=== PATIENT | female | born 1980 | race Caucasian/White ===

== ENCOUNTER 2019-07-17 11:00 | Emergency (ER) | payer OTHER, SELFPAY ==
--- NOTE | 2019-07-17 11:09 | ED.GENADULT ---
HPI - General Adult General Chief complaint: Urogenital-Female Stated complaint: Poss UTI Time Seen by Provider: 07/17/19 11:24 Source: patient and RN notes reviewed Mode of arrival: ambulatory Limitations: no limitations History of Present Illness HPI narrative: This patient has had frequency and burning of urination that began 2 weeks ago with low back pain and suprapubic discomfort which she rates a 5 out of 10 is been treated with ibuprofen. She has been using cranberry juice for the symptoms of frequency and urgency. He has not had any vaginal discharge or bleeding with this. She has had no rashes. She has not had any fever. She is otherwise felt well without any ear pain, no nasal drainage, no sore throat, no cough. There is been no nausea, no vomiting, no diarrhea. She has had no hematuria. She has no history of UTIs. She has no history of kidney stones. Related Data Home Medications Medication Instructions Recorded Confirmed cetirizine [Zyrtec] 10 mg PO DAILY 07/17/19 07/17/19 fluticasone propionate [Flonase 1 spray INTRANASAL BID 07/17/19 07/17/19 Allergy Relief] venlafaxine [Effexor XR] 150 mg PO DAILY 07/17/19 07/17/19 Allergies Allergy/AdvReac Type Severity Reaction Status Date / Time No Known Allergies Allergy Mild Unverified 12/06/05 06:26 Review of Systems Review of Systems: Narrative: CONSTITUTIONAL: Denies fever, chills, or sweats. Noncontributory except as pertains to the past medical history and history of present illness. EYES: Denies visual changes, redness, or discharge. ENT: Denies rhinorrhea, congestion, sore throat, or otalgia. CARDIOVASCULAR: Denies chest pain, palpitations, or edema. RESPIRATORY: Denies cough or dyspnea. GASTROINTESTINAL: Denies abdominal pain, nausea, vomiting, or diarrhea. GENITOURINARY: Denies dysuria or hematuria. SKIN: Denies rash or itching. MUSCULOSKELETAL: Denies back pain, joint pain, or myalgia. NEUROLOGIC: Denies headache, numbness, or weakness. PSYCHIATRIC: Denies anxiety or depression. PMFSH Comments At time of signature, I have reviewed and agree with nursing past medical, surgical, social, and family history.Please see nursing chart for further information. There is no relevant family history pertinent to the presenting complaint. Exam Narrative: Exam Narrative: GENERAL: Well-appearing, well-nourished, and in no acute distress. HEAD: Normocephalic, atraumatic. EYES: PERRLA and EOMI. EARS: TM's clear bilaterally and the canals are clear. NOSE: Nares clear, no rhinorrhea or epistaxis. THROAT:Mucous membranes moist.Oropharynx normal without erythema or exudates. NECK: Supple. No adenopathy of the neck, supraclavicular, axillary, or inguinal areas. RESPIRATORY: No respiratory distress. Airway patent. Respirations non-labored. Clear to auscultation. HEART: Regular rate and rhythm. No murmur heard. Normal peripheral pulses. ABDOMEN: Soft, nontender, nondistended, normal active bowel sounds.No masses. No rebound or guarding, No organomegaly. No CVA pain. No pain McBurney's point. The patient is a negative Pérez sign and negative Rovsing sign. There are no pulsatile masses and no audible bruits. EXTREMITIES: No clubbing/cyanosis/ edema. Normal strength & range of motion. SKIN: Warm, dry.Normal Color. No rashes or lesions. Patient is well-nourished well-hydrated and has moist mucous membranes and no tenting of the skin. NEURO: Alert and oriented. CN 2-12 grossly intact. No focal deficits. PSYCH: Normal mood and affect. Course Vital Signs Vital signs: Patient is afebrile and the other vital signs are within normal limits. Medical Decision Making MDM Narrative Medical decision making narrative: Possible UTI. Lab Data Lab results narrative: The urinalysis is a yellow clear coloration. Specific gravity is 1.005 and pH is 5.5. There is trace blood and trace leukocytes with the rest the dip UA being negative. Urine culture and sensitivity is pending.
[2019-07-17 11:15] VITALS: BP 124/85; PULSE 107; RESP 16; TEMP 37; O2SAT 100
== END 2019-07-17 11:40 | disposition home or self-care (01) ==
LOC: EXPBETH 11:12
PROVIDERS: Emergency Provider Family Medicine; PCP Family Medicine
DX: N30.00 Acute cystitis without hematuria (principal); F32.9 Major depressive disorder, single episode, unspecified
CPT/HCPCS: 81003; 87077; 87086; 87088; 87186; 99203; G0463

== ENCOUNTER 2023-08-05 14:00 | Outpatient (CLI) | payer OTHER, SELFPAY ==
--- NOTE | ~2023-08-05 | XR_ITS ---
EXAMINATION: XR sinus min 3V DATE: 08/05/2023 14:19 INDICATION: Chronic sinusitis, unspecified. TECHNIQUE: 5 views of the paranasal sinuses were obtained. COMPARISON: None. FINDINGS: Bone alignment is normal. No fracture. The paranasal sinuses are grossly clear. IMPRESSION: 1. Normal paranasal sinuses. Reviewed, dictated and finalized at location E. [employer]
== END 2023-08-05 14:01 | disposition home or self-care (01) ==
LOC: ANHBWCIMG 14:02
PROVIDERS: PCP Nurse Practitioner Adult Health; Visit Provider Nurse Practitioner Adult Health
DX: J34.89 Other specified disorders of nose and nasal sinuses (principal)
CPT/HCPCS: 70220

== ENCOUNTER 2023-09-23 14:08 | Outpatient (CLI) | payer OTHER, SELFPAY ==
[2023-09-23 19:21] LABS: Appearance Urine Clear (Clear); Bacteria Urine None Seen /hpf; Bilirubin Urine Negative (Negative); Blood Urine Negative (Negative); Color Urine Yellow (Yellow); Glucose Urine UA Negative (Negative); Ketones Urine Negative (Negative); Leukocyte Esterase Ur 1+ LEU/UL (Negative); Nitrate Urine Negative (Negative); Non Pathogenic Casts 0-2; Protein Urine Negative (Negative); RBC Urine 0-2 /hpf (0-2); Squamous Epithelial Cell Urine None Seen /hpf (Few); Urobilinogen Urine 0.2 mg/dL (<2.0)
[2023-09-23 19:28] LABS: Specific Grav Ur 1.004 (1.001-1.035)
[2023-09-23 19:29] LABS: Add Urine Microscopic? YES
== END 2023-09-23 14:09 | disposition home or self-care (01) ==
PROVIDERS: PCP Nurse Practitioner Adult Health; Visit Provider Nurse Practitioner Adult Health
DX: R39.9 Unspecified symptoms and signs involving the genitourinary system (principal)
CPT/HCPCS: 81001; 87086

== ENCOUNTER 2023-09-26 08:16 | Outpatient (CLI) | payer OTHER, SELFPAY ==
--- NOTE | ~2023-09-26 | US_ITS ---
EXAMINATION: US pelvic complete w TV DATE: 09/26/2023 08:43 INDICATION: Excessive and frequent menstruation. TECHNIQUE: Multiple transabdominal and transvaginal sonographic images of the pelvis were obtained. COMPARISON: None. FINDINGS: TRANSABDOMINAL ULTRASOUND: The uterus measures 10.5 x 7.0 x 6.1 cm. There is no free fluid in the pelvis. TRANSVAGINAL ULTRASOUND: The endometrial complex measures 7 mm in thickness. There is a 1.3 cm intramural fibroid. There is a 3.8 cm intramural fibroid. There is a nabothian cysts in the cervix. The right ovary measures 2.1 x 2 .7 x 2.1 cm. The left ovary measures 2.3 x 1.8 x 2.1 cm. There is normal vascular flow in the ovaries . IMPRESSION: 1. Uterine fibroids. Reviewed, dictated and finalized at location A. IMPRESSION: 1. Uterine fibroids.
== END 2023-09-26 08:17 ==
LOC: GOSHIMG 08:17
PROVIDERS: PCP Nurse Practitioner Adult Health; Visit Provider Nurse Practitioner Adult Health
DX: N92.0 Excessive and frequent menstruation with regular cycle (principal); D25.1 Intramural leiomyoma of uterus
CPT/HCPCS: 76830; 76856

== ENCOUNTER 2023-11-04 14:58 | Outpatient (CLI) | payer OTHER, SELFPAY ==
[2023-11-04 18:43] LABS: Hematocrit 37.8 % (37.0-47.0); Hemoglobin 12.7 g/dL (12.0-15.0); Mean Corpuscular HGB Conc 33.6 g/dl (32-36); Mean Corpuscular Hemoglobin 30.5 pg (26-34); Mean Corpuscular Volume 90.6 fl (80-100); Mean Platelet Volume 10.2 fl (7.4-10.4); Platelet Count Result 450 k/mm3 (150-375); Red Blood Count 4.17 M/mm3 (4.2-5.4); Red Cell Distribution Width 14.6 % (11.5-14.5); White Blood Count 7.2 K/mm3 (4.5-10.0)
== END 2023-11-04 14:59 | disposition home or self-care (01) ==
LOC: ANHBWCLAB 15:01
PROVIDERS: PCP Nurse Practitioner Adult Health; Visit Provider Obstetrics & Gynecology
DX: Z01.818 Encounter for other preprocedural examination (principal); N92.0 Excessive and frequent menstruation with regular cycle
CPT/HCPCS: 36415; 85027

== ENCOUNTER 2023-11-13 00:26 | Day surgery (SDC) | payer OTHER, SELFPAY ==
[2023-11-03 15:16] VITALS: BMI 29.2
--- NOTE | 2023-11-03 15:24 | PC.NURSE ---
Report to the Outpatient Waiting Room, entrance under the green pavilion located off [facility], at time _0600_ on date _[id number]_. Planned Procedure Time: _0730_. Time changes happen often and if your time is changed the preop area will call you the afternoon before. - You and your visitor will be asked to self-screen and do not enter if you have any COVID symptoms. - A mask is optional within the hospital at this time. Patients may have clear liquids (water, carbonated beverages, clear teas, apple juice) until 3 hours prior to surgery with a maximum of 20 ounces. - No food from midnight until time of surgery Take the following medications with a SIP of water the morning of surgery: __Bupropion DO NOT STOP ANY OF YOUR OTHER PRESCRIPTION MEDICATIONS PRIOR TO SURGERY ?EXCEPT THE FOLLOWING Medications to discontinue per physician Multivitamin Date to take last [id number] Please no make-up, nail lao, hairspray, perfume, deodorant, or body powder the day of surgery. No jewelry (including any body piercings) or valuables the day of surgery, leave them at home. Please take a shower or bath the night before, or the morning of, surgery with an antibacterial soap. Wear comfortable, loose fitting clothing. Children are encouraged to wear pajamas. - Jewelry must be removed prior to entering the operating room. Rings and piercings that are not removed may be cut off. - The hospital will not accept responsibility for valuables. - Please leave all valuables, including medications, at home the day of surgery. If you are going home after surgery, a licensed pile driver operator barge mounted must drive you home. - NO public transportation without another adult if you receive anesthesia. - We recommend that an adult stay with you for 24 hours following discharge. - We also recommend that you do not drive, make important decision, drink alcoholic beverages, or take any drugs that were not prescribed by your health care provider for at least 24 hours after your discharge time. For Pediatric surgeries, we recommend two adults accompany the child home. Follow any additional instructions given to you from your surgeon. If you or anyone in your household have experienced Covid symptoms in the past week, please notify your surgeon or the nurse liaison at the phone number below for possible testing. Telephone instructions given to __Reina__and asked if any additional questions and then verbalized understanding. Patient advised to call surgeon office or pre surgery nurse liaison [phone] if any additional questions.
[2023-11-13] VITALS (12 sets, daily range): BP systolic 106–133; BP diastolic 70–88; PULSE 60–88; RESP 10–20; TEMP 36.1–36.9; O2SAT 97–100
--- NOTE | 2023-11-13 06:43 | WPDANESEPPF ---
Anes - Initial Pre Proc Eval Procedure: Operation Date: 11/13/23 07:30 Proposed Procedures p Robotic Assisted Total Laparoscopic Hysterectomy with Bilateral Salpingectomy - Ryan Negrete MD Date/Time: 11/13/23 06:43 Surgeon: Ryan Negrete MD Pre Op Diagnosis: Urerine Fibroid Patient Data Age: 43 Gender: F Height: 1.75 m Weight: 90 kg Allergies Allergy/AdvReac Type Severity Reaction Status Date / Time Penicillins Allergy Severe Swelling Verified 11/03/23 15:13 of Lip/Tongue/Throat Home Medications Medication Instructions Recorded Confirmed Type bupropion HCl 150 mg tablet,12 hr 150 mg PO BID 12/05/22 11/03/23 History sustained-release cyclobenzaprine 10 mg tablet 10 mg PO BID PRN Spasms 12/05/22 11/03/23 History fluticasone propionate 50 2 spray intranasal DAILY #16 grams 12/05/22 11/03/23 Rx mcg/actuation nasal spray,suspension (Flonase Allergy Relief) montelukast 10 mg tablet 10 mg PO DAILY 12/05/22 11/03/23 History omeprazole 20 mg capsule,delayed 20 mg PO DAILY #90 caps 06/05/23 11/03/23 Rx release zolpidem 10 mg tablet 10 mg PO QHS #30 tabs 09/25/23 11/03/23 Rx escitalopram oxalate 10 mg tablet 10 mg PO DAILY #90 tabs 10/20/23 11/03/23 Rx cetirizine 10 mg tablet (Zyrtec) 10 mg PO DAILY 11/03/23 11/03/23 History multivitamin 1 tablet PO DAILY 11/03/23 11/03/23 History dextroamphetamine-amphetamine 10 10 mg PO DAILY PRN attention #30 11/04/23 Rx mg tablet (Adderall) tabs dextroamphetamine-amphetamine ER 30 mg PO QAM #30 caps 11/04/23 Rx 30 mg 24hr capsule,extend release (Adderall XR) Patient hx anesthesia problems: none Family hx anesthesia problems: none Results Review: All pre-operative results and documents have been reviewed as part of the pre-operative evaluation. [facility] Past Medical History Medical History (Updated 11/13/23 @ 06:43 by Greg Mcdonald MD) Anemia Fibroid uterus Menometrorrhagia Overweight Surgical History Surgical History H/O tubal ligation History of bladder surgery bladder sling History of gastric bypass (01/2020) Family History Family History Father Hypertension History of ETOH abuse Depression Mother History of ETOH abuse Hypertension Depression Grandparent Hypertension Depression Heart disease Cerebrovascular accident Disorder of thyroid Lung cancer History of ETOH abuse Grandparent History of ETOH abuse Hypertension Social History Social History (Updated 11/13/23 @ 06:43 by Greg Mcdonald MD) Smoking status: Former smoker Second hand tobacco smoke exposure: No Alcohol intake: current Drinks per week: 2 Substance use: never Substance use type: does not use Do You Feel Safe in your Home?: Yes Lack of Transportation: No Lack of Food: Never True Current Housing: I Have Housing Concerned About Future Housing: No Difficulty Paying Gas/Electric Bills: No Difficulty Paying for Meds: No Currently Unemployed: No Education: High School Diploma/GED Difficulty w/ Childcare or Family Care: No Living arrangements: with family Additional living arrangements comments: Occupation/Education: occupation 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
[2023-11-13] MEDS: ACETAMINOPHEN 500 MG TABLET 1000 MG PO (06:55)
[2023-11-13] MEDS: LACTATED RINGERS 1,000 ML 30 ML IV CONT ×2 (07:00→09:03)
[2023-11-13] MEDS: KETOROLAC 15 MG/ML VIAL (*BKC) IV PUSH (07:05)
--- NOTE | 2023-11-13 07:07 | WPDHPUPDATE1 ---
History and Physical Update Update Date/Time: 11/13/23 07:07 proceed with robotic total hysterectomy with bilateral salpingectomy/NO oophorectomy History and Physical has been reviewed, including an updated exam of the patient. There are NO changes in the patient's condition. Risks, benefits, and alternatives have been discussed and questions answered. Patient agrees to proceed with procedure.
[2023-11-13] MEDS: ceFAZolin 2 GM/D5W 50 ML 2 GM/50 ML BAG IVPB (07:30)
--- NOTE | 2023-11-13 08:58 | W.PM.PROC2 ---
Procedure Note - Detailed Date of Procedure 11/13/23 Pre-op Diagnosis 1. Uterine fibroid 2. Menometrorrhagia Post-op Diagnosis Same Procedure Performed Robotic assisted total laparoscopic hysterectomy with ovarian preservation Surgeon Ryan Negrete MD Anesthesia General Findings Enlarged globular uterus. Fallopian tubes surgically absent. Ovaries present without abnormality. Description of Procedure Patient prepped and draped in usual manner for this procedure. Cervical instruments were placed for uterine mobility throughout the case. Abdominal trocar sites were marked and trocars were placed under direct visualization. [facility] system was attached to the trocars and the instruments were placed under direct visualization. Surgeon moved to the console. Enlarged globular uterus was noted with normal ovaries. Tubes had been previously removed. The round ligament was cauterized and cut bilaterally bladder flap developed without difficulty. Posterior leaf the broad ligament was then incised to skeletonize the uterine vessels. Uterine vessels then cauterized and cut bilaterally. Posterior cul-de-sac was entered this was carried circumferentially around the cervix to separate the cervix from the vagina. Uterus was delivered into the vagina. Cuff was then closed using V lock suture from the left angle to the midline and from the right angle to the midline with good approximation hemostasis noted. Irrigation was undertaken there was no bleeding. Kath was placed empirically over the vaginal cuff. Gas was allowed to escape, trocars removed incisions approximated with 4-0 Monocryl. Patient was sent to recovery room in stable condition. Estimated Blood Loss 100 Drains No Packing No Pathology Yes Complications No immediate complications Condition Stable Disposition PACU [facility] Billing Surgery - Charge Forward: Surgery Billing
[2023-11-13] MEDS: fentaNYL CITRATE INJ (*CRX) 100 MCG/2 ML VIAL 25 MCG IV PUSH ×8 (09:34→09:54)
[2023-11-13] MEDS: HYDROmorphone HCL INJ (*CRX) 1 MG/ML SYR 0.5 MG IV PUSH ×4 (09:59→10:16)
[2023-11-13] MEDS: IBUPROFEN 600 MG TABLET PO ×3 (10:58→22:59)
[2023-11-13] MEDS: HYDROcodone/acetaminophen (*CRX) 10-325 MG TABLET 1 TAB PO ×5 (10:59→23:00)
[2023-11-13] MEDS: SIMETHICONE 80 MG TAB.CHEW PO ×2 (10:59→17:05)
[2023-11-14] MEDS: MORPHINE SULFATE (*CRX) 4 MG/ML INJ IV PUSH (00:13)
[2023-11-14 04:35] VITALS: BP 119/60; PULSE 67; RESP 16; TEMP 36.8
[2023-11-14] MEDS: IBUPROFEN 600 MG TABLET PO (04:46)
[2023-11-14] MEDS: HYDROcodone/acetaminophen (*CRX) 10-325 MG TABLET 1 TAB PO ×2 (04:46→08:47)
[2023-11-14 05:32] LABS: Basophils Percent Auto 0.4 % (0.2-1.2); Eosinophils Absolute Auto 0.1 K/mm3 (0-0.3); Eosinophils Percent Auto 0.9 % (0-4.4); Hematocrit 31.2 % (37.0-47.0); Hemoglobin 10.2 g/dL (12.0-15.0); Immature Granulocyte Absolute 0.01 K/mm3 (0.00-0.031); Immature Granulocyte Percent A 0.1 % (0-0.5); Lymphocytes Absolute Auto 1.09 K/mm3 (0.9-3.2); Lymphocytes Percent Auto 16.2 % (18.3-44.2); Mean Corpuscular HGB Conc 32.7 g/dl (32-36); Mean Corpuscular Hemoglobin 30.4 pg (26-34); Mean Corpuscular Volume 92.9 fl (80-100); Monocytes Absolute Auto 0.3 K/mm3 (0.1-0.6); Monocytes Percent Auto 5.1 % (2.6-8.5); Neutrophils Absolute Auto 5.2 K/mm3 (1.3-6.7); Neutrophils Percent Auto 77.3 % (45.5-73.1); Platelet Count Result 325 k/mm3 (150-375); Red Blood Count 3.36 M/mm3 (4.2-5.4); Red Cell Distribution Width 14.7 % (11.5-14.5); White Blood Count 6.7 K/mm3 (4.5-10.0)
[2023-11-14 08:15] VITALS: BP 114/68; PULSE 70; RESP 18; TEMP 36.5; O2SAT 100
[2023-11-14] MEDS: SIMETHICONE 80 MG TAB.CHEW PO (08:47)
== END 2023-11-14 09:00 | disposition home or self-care (01) ==
LOC: ANHSURGERY 06:21 → ANHOB2 16:30
PROVIDERS: PCP Nurse Practitioner Adult Health; Visit Provider Obstetrics & Gynecology
PROC: (CPT 58571; principal; 2023-11-13 07:30)
DX: D25.9 Leiomyoma of uterus, unspecified (principal); N92.1 Excessive and frequent menstruation with irregular cycle; N80.03 Adenomyosis of the uterus; N88.8 Other specified noninflammatory disorders of cervix uteri; Z98.84 Bariatric surgery status; Z87.891 Personal history of nicotine dependence
CPT/HCPCS: 58571; S2900; 36415; 85025; 85027; 86850; 86900; 86901; 88307; A9270; J0330; J0690; J1100; J1170; J1885; J2250; J2270; J2405; J2704; J3010; J7120

== ENCOUNTER 2023-12-09 13:47 | Outpatient (CLI) | payer OTHER, SELFPAY ==
[2023-12-09 19:46] LABS: Hematocrit 37.3 % (37.0-47.0); Hemoglobin 12.1 g/dL (12.0-15.0); Mean Corpuscular HGB Conc 32.4 g/dl (32-36); Mean Corpuscular Hemoglobin 29.4 pg (26-34); Mean Corpuscular Volume 90.8 fl (80-100); Mean Platelet Volume 10.3 fl (7.4-10.4); Platelet Count Result 384 k/mm3 (150-375); Red Blood Count 4.11 M/mm3 (4.2-5.4); Red Cell Distribution Width 14.9 % (11.5-14.5); White Blood Count 3.8 K/mm3 (4.5-10.0)
[2023-12-09 20:25] LABS: Alanine Aminotransferase 24 U/L (6-35); Albumin Level 4.8 g/dL (3.5-5.1); Alkaline Phosphatase 63 U/L (38-126); Anion Gap 7 mmol/L (4-12); Aspartate Amino Transferase 42 U/L (14-36); Bilirubin,Total 0.6 mg/dL (0.2-1.3); Blood Urea Nitrogen 9 mg/dL (7-17); Calcium 9.9 mg/dL (8.4-10.2); Carbon Dioxide 25 mmol/L (22-30); Chloride 106 mmol/L (98-107); Cholesterol 238 mg/dL (0-200); Estimated Glomerular Filt Rate > 60; Glucose 79 mg/dL (65-110); Potassium 4.1 mmol/L (3.4-5.0); Sodium 138 mmol/L (137-145); Triglycerides 67 mg/dL (<150)
[2023-12-09 20:27] LABS: LDL Cholesterol Direct 92 mg/dL
[2023-12-09 21:54] LABS: HDL Direct 153 mg/dL
== END 2023-12-09 13:48 | disposition home or self-care (01) ==
PROVIDERS: PCP Nurse Practitioner Adult Health; Visit Provider Nurse Practitioner Adult Health
DX: Z13.9 Encounter for screening, unspecified (principal)
CPT/HCPCS: 36415; 80053; 80061; 82607; 84443; 85027

== ENCOUNTER 2023-12-17 08:07 | Outpatient (CLI) | payer OTHER, SELFPAY ==
[2023-12-17 19:15] LABS: Basophils Absolute Auto 0.1 K/mm3 (0.0-0.1); Basophils Percent Auto 1.6 % (0.2-1.2); Eosinophils Absolute Auto 0.2 K/mm3 (0-0.3); Eosinophils Percent Auto 4.6 % (0-4.4); Hematocrit 33.1 % (37.0-47.0); Hemoglobin 11.2 g/dL (12.0-15.0); Immature Granulocyte Absolute 0.01 K/mm3 (0.00-0.031); Immature Granulocyte Percent A 0.3 % (0-0.5); Lymphocytes Absolute Auto 1.23 K/mm3 (0.9-3.2); Lymphocytes Percent Auto 33.3 % (18.3-44.2); Mean Corpuscular HGB Conc 33.8 g/dl (32-36); Mean Corpuscular Hemoglobin 30.4 pg (26-34); Mean Corpuscular Volume 89.7 fl (80-100); Mean Platelet Volume 10.2 fl (7.4-10.4); Monocytes Absolute Auto 0.4 K/mm3 (0.1-0.6); Monocytes Percent Auto 10.8 % (2.6-8.5); Neutrophils Absolute Auto 1.8 K/mm3 (1.3-6.7); Neutrophils Percent Auto 49.4 % (45.5-73.1); Platelet Count Result 279 k/mm3 (150-375); Red Blood Count 3.69 M/mm3 (4.2-5.4); Red Cell Distribution Width 15.5 % (11.5-14.5); White Blood Count 3.7 K/mm3 (4.5-10.0)
== END 2023-12-17 08:08 | disposition home or self-care (01) ==
LOC: ANHBWCLAB 08:09
PROVIDERS: PCP Nurse Practitioner Adult Health; Visit Provider Nurse Practitioner Adult Health
DX: D64.9 Anemia, unspecified (principal)
CPT/HCPCS: 36415; 85025

== ENCOUNTER 2023-12-23 15:24 | Outpatient (CLI) | payer OTHER, SELFPAY ==
[2023-12-23 19:21] LABS: Basophils Absolute Auto 0.1 K/mm3 (0.0-0.1); Basophils Percent Auto 1.3 % (0.2-1.2); Eosinophils Absolute Auto 0.2 K/mm3 (0-0.3); Eosinophils Percent Auto 5.4 % (0-4.4); Hematocrit 36.5 % (37.0-47.0); Hemoglobin 11.9 g/dL (12.0-15.0); Immature Granulocyte Absolute 0.01 K/mm3 (0.00-0.031); Immature Granulocyte Percent A 0.3 % (0-0.5); Lymphocytes Absolute Auto 1.04 K/mm3 (0.9-3.2); Mean Corpuscular HGB Conc 32.6 g/dl (32-36); Mean Corpuscular Hemoglobin 29.9 pg (26-34); Mean Corpuscular Volume 91.7 fl (80-100); Mean Platelet Volume 10.2 fl (7.4-10.4); Monocytes Absolute Auto 0.4 K/mm3 (0.1-0.6); Monocytes Percent Auto 9.7 % (2.6-8.5); Neutrophils Absolute Auto 2.1 K/mm3 (1.3-6.7); Neutrophils Percent Auto 55.3 % (45.5-73.1); Platelet Count Result 331 k/mm3 (150-375); Red Blood Count 3.98 M/mm3 (4.2-5.4); Red Cell Distribution Width 15.6 % (11.5-14.5); White Blood Count 3.7 K/mm3 (4.5-10.0)
[2023-12-23 19:27] LABS: Iron 39 ug/dL (37-170)
[2023-12-23 19:38] LABS: Percent Iron Saturation 8 % (20-50)
[2023-12-23 20:02] LABS: Ferritin 9.23 ng/mL (6.24-137)
== END 2023-12-23 15:25 | disposition home or self-care (01) ==
LOC: ANHBWCLAB 15:26
PROVIDERS: PCP Nurse Practitioner Adult Health; Visit Provider Nurse Practitioner Adult Health
DX: D64.9 Anemia, unspecified (principal)
CPT/HCPCS: 36415; 82728; 83540; 83550; 85025

== ENCOUNTER 2023-12-24 11:23 | Outpatient (CLI) | payer OTHER, SELFPAY ==
[2023-12-24 19:48] LABS: IFOB Positive Control Positive; Immunochemical Fecal Occult Bl Negative (N)
== END 2023-12-24 11:24 | disposition home or self-care (01) ==
LOC: ANHBWCLAB 11:25
PROVIDERS: PCP Nurse Practitioner Adult Health; Visit Provider Nurse Practitioner Adult Health
DX: D64.9 Anemia, unspecified (principal)
CPT/HCPCS: 82274

== ENCOUNTER 2024-01-05 17:24 | Emergency (ER) | payer OTHER, SELFPAY ==
[2024-01-05 17:38] VITALS: BP 133/81; PULSE 93; RESP 16; TEMP 36.9; O2SAT 99
--- NOTE | 2024-01-05 18:20 | ED.GENADULT ---
HPI - General Adult General Chief complaint: Wound/Laceration Stated complaint: Laceration to Finger Time Seen by Provider: 01/05/24 18:05 Source: patient, RN notes reviewed and old records reviewed Mode of arrival: ambulatory Limitations: no limitations History of Present Illness HPI narrative: 43 year old female who presents to [facility] care with complaints of laceration of left index finger distal aspect which occurred prior to arrival when she was trying to cut some tape using a drip box tender knife.Patient reports that her tetanus is up to date. Patient reports that she has had a hard time getting the bleeding to stop has applied pressure and dressing after cleansing with soap and water. Patient is right hand dominant. MD complaint: laceration to left index finger Onset (ago): minute(s) (within past 30 minutes prior to arrival) Location: left and upper extremity (index finger) Severity scale (1-10): 2 Treatments prior to arrival: other (cleansed and applied band-aide) Related Data Home Medications Medication Instructions Recorded Confirmed bupropion HCl 150 mg tablet,12 hr 150 mg PO BID 12/05/22 01/06/24 sustained-release cyclobenzaprine 10 mg tablet 10 mg PO BID PRN Spasms 12/05/22 01/06/24 cetirizine 10 mg tablet (Zyrtec) 10 mg PO DAILY 11/03/23 01/06/24 multivitamin 1 tablet PO DAILY 11/03/23 01/06/24 Allergies Allergy/AdvReac Type Severity Reaction Status Date / Time Penicillins Allergy Severe Swelling Verified 01/06/24 07:18 of Lip/Tongue/Throat Review of Systems Review of Systems: CONSTITUTIONAL: Denies fever, chills, or sweats. CARDIOVASCULAR: Denies chest pain, palpitations, or edema. RESPIRATORY: Denies cough or dyspnea. SKIN: Reports laceration to left distal index finger, side of finger to most distal area with no nail involvement MUSCULOSKELETAL: Denies musculoskeletal pain NEUROLOGIC: Denies numbness, or weakness. All systems reviewed & are unremarkable except as noted in HPI and below PMFSH Past Medical History Medical History ADD (attention deficit disorder) Allergic rhinitis Anemia Depression Fibroid uterus Menometrorrhagia Overweight Surgical History Surgical History H/O tubal ligation History of bladder surgery bladder sling History of gastric bypass (01/2020) History of rhinoplasty History of robot-assisted laparoscopic hysterectomy (11/13/23) Robotic assisted total laparoscopic hysterectomy with ovarian preservation History of tonsillectomy Family History Family History Father Hypertension History of ETOH abuse Depression Mother History of ETOH abuse Hypertension Depression Grandparent Hypertension Depression Heart disease Cerebrovascular accident Disorder of thyroid Lung cancer History of ETOH abuse Grandparent History of ETOH abuse Hypertension Social History Social History Smoking status: Former smoker Second hand tobacco smoke exposure: No Alcohol intake: current Drinks per week: 2 Substance use: never Substance use type: does not use Do You Feel Safe in your Home?: Yes Lack of Transportation: No Lack of Food: Never True Current Housing: I Have Housing Concerned About Future Housing: No Difficulty Paying Gas/Electric Bills: No Difficulty Paying for Meds: No Currently Unemployed: No Education: High School Diploma/GED Difficulty w/ Childcare or Family Care: No Living arrangements: with family Additional living arrangements comments: Occupation/Education: occupation 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
== END 2024-01-05 19:12 | disposition home or self-care (01) ==
PROVIDERS: Emergency Provider Registered Nurse; PCP Nurse Practitioner Adult Health
DX: S61.211A Laceration without foreign body of left index finger without damage to nail, initial encounter (principal); W26.0XXA Contact with knife, initial encounter; Z87.891 Personal history of nicotine dependence; F32.A Depression, unspecified
CPT/HCPCS: 12001; 99213; G0463

== ENCOUNTER 2024-01-06 07:43 | Outpatient (CLI) | payer OTHER, SELFPAY ==
[2024-01-06 19:06] LABS: Erythrocyte Sedimentation Rate 17 mm/hr (0-20)
[2024-01-06 19:19] LABS: CRP < 0.5 mg/dL (<1.0); Magnesium 2.1 mg/dL (1.6-2.3)
[2024-01-07 16:13] LABS: ANA Cascade Screen NEGATIVE (NEGATIVE)
[2024-01-07 23:14] LABS: Lupus dRVVT Confirmation NEGATIVE (NEGATIVE); Lupus dRVVT Screen 51 sec (< OR = 45); PTT-LA Screen 34 sec (< OR = 40)
[2024-01-08 15:29] LABS: Thyroid Peroxidase Antibodies 2 IU/mL (<9)
== END 2024-01-06 07:44 | disposition home or self-care (01) ==
LOC: ANHBWCLAB 07:45
PROVIDERS: PCP Nurse Practitioner Adult Health; Visit Provider Nurse Practitioner Adult Health
DX: Z13.9 Encounter for screening, unspecified (principal); M25.50 Pain in unspecified joint
CPT/HCPCS: 36415; 83735; 85613; 85652; 85730; 86038; 86140; 86225; 86235; 86364; 86376

== ENCOUNTER 2024-02-23 07:27 | Outpatient (CLI) | payer OTHER, SELFPAY ==
--- NOTE | ~2024-02-23 | MM_ITS ---
EXAMINATION: MM screening jaqueline BI w jordan HISTORY: Screening mammogram TECHNIQUE: Craniocaudal and mediolateral oblique 3-D tomosynthesis images were obtained and synthetic 2-D images were generated. CAD analysis was submitted and interpreted. COMPARISON: No prior mammogram is available for comparison at this institution. BREAST PARENCHYMAL COMPOSITION:Not Dense. There are scattered areas of fibroglandular density. FINDINGS: No suspicious mass, calcification, or architectural distortion are identified in either luis antonio ast to suggest malignancy. There has been no suspicious interval change. IMPRESSION: No mammographic evidence of malignancy. Recommend routine screening mammography in one year. BI-RADS Category 1: Negative Reviewed, dictated and finalized at location .
== END 2024-02-23 07:28 | disposition home or self-care (01) ==
LOC: ANHIMG 07:29
PROVIDERS: PCP Nurse Practitioner Adult Health; Visit Provider Nurse Practitioner Adult Health
DX: Z12.31 Encounter for screening mammogram for malignant neoplasm of breast (principal)
CPT/HCPCS: 77063; 77067